=== PATIENT | male | born 2000 | race Caucasian/White ===

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

== ENCOUNTER 2022-06-10 13:03 | Emergency (ER) | payer SELFPAY ==
[2022-06-10 13:08] VITALS: BP 129/88; PULSE 99; RESP 16; TEMP 36.7; O2SAT 98
[2022-06-10 13:35] VITALS: BP 139/82; PULSE 81; RESP 16
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
--- NOTE | 2022-06-11 12:59 | DCPLANNER ---
software design manager had message to speak with patient about getting established with a primary care physician. software design manager spoke with patient he stated that he has a primary care physician.
== END 2022-06-10 14:15 | disposition home or self-care (01) ==
PROVIDERS: Emergency Provider Physician Assistant
DX: G89.29 Other chronic pain (principal); M54.50 Low back pain, unspecified; F17.210 Nicotine dependence, cigarettes, uncomplicated
CPT/HCPCS: 99283